=== PATIENT | male | born 1995 | race Caucasian/White ===

== ENCOUNTER 2024-04-09 18:42 | Emergency (ER) | payer OTHER ==
[~2024-04-09] VITALS: Ht 182.9 cm; Wt 99.8 kg
[2024-04-09] MEDS ORDERED: HYDROmorphone HCl/Pf 1MG SYR IV ONE (19:05)
[2024-04-09] MEDS ORDERED: HYDROmorphone HCl/Pf 1MG SYR IV PRN (20:10)
== END 2024-04-09 21:40 | disposition short-term general hospital (02) ==
LOC: ER 18:42
DX: S02.2XXA Fracture of nasal bones, initial encounter for closed fracture (principal); S02.40DA Maxillary fracture, left side, initial encounter for closed fracture; S02.40CA Maxillary fracture, right side, initial encounter for closed fracture; S02.32XA Fracture of orbital floor, left side, initial encounter for closed fracture; S93.401A Sprain of unspecified ligament of right ankle, initial encounter; V49.9XXA Car occupant (driver) (passenger) injured in unspecified traffic accident, initial encounter
CPT/HCPCS: 70450; 70486; 71260; 72125; 73610; 74177; 96374-59; 96376-59; 99285-25; J1170; Q9967